=== PATIENT | female | born 1985 | race Caucasian/White ===

== ENCOUNTER 2018-02-19 22:06 | Emergency (ER) | payer MEDICAID, OTHER ==
[2018-02-19] MEDS ORDERED: PROPARACAINE 0.5% 15 ML OPHT DROP ONE (22:14)
[2018-02-19] MEDS ORDERED: FLUORESCEIN SODIUM 1 MG STRIP OP ONE ×2 (22:14→22:35)
[2018-02-19] MEDS ORDERED: PROPARACAINE 0.5% 15 ML OPHT DROP RTEYE ONE (22:35)
[2018-02-19] MEDS ORDERED: ERYTHROMYCIN 0.5% 1 GM OPHT.OINT RTEYE ONE (22:42)
--- NOTE | 2018-02-19 22:42 | EDPHY ---
H & P Stated Complaint: eyeball injury with knife Time Seen by Provider: 02/19/18 22:18 HPI/ROS: Chief Complaint: Right eye injury HPI: 32-year-old woman accidentally poked her right eye with a knife when she was cutting a watermelon. Patient states she was holding the knife in her right hand a lifted the watermelon up and the tip of the knife went into the front of her right eye. She was wearing contacts at the time. She is complaining of pain and a swath of boles vision in the front of field vision. No prior eye injuries. Does not have any increased tearing. Injury occurred about 1 hr ROS: 10 systems were reviewed and were negative except those elements noted in the HPI. PMH: Denies Social History: No smoking Family History: non-contributory Physical Exam: General: Awake, alert, no acute distress Eye Exam Visual Acuity: 20/400 with glasses right eye EOM: Intact OU Visual Roach: Intact OU Pupil: Equal, round and reactive to light and accomodation OU External: Lids, lashes and margins normal OU Slit Lamp; Normal Conjuctiva, Iris normal, patient has a large linear corneal abrasion extending from the 2 o'clock to the 8 o'clock position, there is no leakage of aqueous humor. Anterior chambers clear without cells or flare , no hyphema, normal angles Fluorosceine exam: There is uptake of across the field of vision in the center of the pupil from the 2 o'clock to the 8 o'clock position. Tonometry: Not performed - Personal History LMP (Females 10-55): Now Current Tetanus Diphtheria and Acellular Pertussis (TDAP): Yes - Medical/Surgical History Hx Asthma: No Hx Chronic Respiratory Disease: No Hx Diabetes: No Hx Cardiac Disease: No Hx Renal Disease: No Hx Cirrhosis: No Hx Alcoholism: No Hx HIV/AIDS: No Hx Splenectomy or Spleen Trauma: No Other PMH: psychoaffecrive, reg irregular HR, multiple concussion - Social History Smoking Status: Never smoked Constitutional: Initial Vital Signs Temperature (C) 36.5 C 02/19/18 22:11 Heart Rate 77 02/19/18 22:11 Respiratory Rate 16 02/19/18 22:11 Blood Pressure 140/87 H 02/19/18 22:11 O2 Sat (%) 99 02/19/18 22:11 O2 Delivery Mode Room Air Allergies/Adverse Reactions: No Known Allergies Allergy (Unverified 02/19/18 22:11) Medical Decision Making ED Course/Re-evaluation: Patient has a large corneal abrasion. I do not appreciate any aqueous humor leakage. The pupil is round and reactive appropriately. There is no evidence of globe rupture on examination. Patient will be given erythromycin ointment, oral analgesia will follow up with Ophthalmology tomorrow. Departure - Departure Disposition: Home, Routine, Self-Care Clinical Impression: Corneal abrasion Condition: Good Instructions: Corneal Abrasion (ED) Additional Instructions: Follow up with Dr. Mathis, ophthalmology tomorrow. Call tomorrow morning for next available appointment. Apply the eye ointment every 4 hr while awake. You may take hydrocodone with acetaminophen 1-2 tablets every 4-6 hours as needed for pain. Referrals: Ambrose Mathis MD [Medical Doctor] - As per Instructions
[2018-02-19] MEDS ORDERED: HYDROCODONE/APAP 5/325 TAB PO ONE (22:43)
[2018-02-19] MEDS ORDERED: HYDROCOD/APAP 5/325 PREPACK#6 BTL TAKEHOME ONE (22:43)
[2018-02-19 23:11] VITALS: BP 126/71
== END 2018-02-19 23:11 | disposition home or self-care (01) ==
DX: S05.01XA Injury of conjunctiva and corneal abrasion without foreign body, right eye, initial encounter (principal); W26.0XXA Contact with knife, initial encounter; Y93.G1 Activity, food preparation and clean up; Y99.8 Other external cause status